=== PATIENT | male | born 1940 | race Caucasian/White ===

== ENCOUNTER 2021-06-17 12:54 | Inpatient (IN) | payer OTHER ==
[~2021-06-17] VITALS: Ht 180.3 cm; Wt 68.0 kg
[2021-06-17 13:10] VITALS: BP_SYST 115
--- NOTE | 2021-06-17 13:10 | NUR ---
Pt to bed 7 for evaluation. Report given to DAT Ware who will assume care.
--- NOTE | 2021-06-17 13:11 | NUR ---
Placed patient onto monitor, vitals obtained WNL, afebrile, patient reports rectal bleeding x 3 days. Currently under care of Oncology. No active bleeding noted. Patient AOx4, at bedside
--- NOTE | 2021-06-17 13:12 | NUR ---
MD at bedside, OB collected from patient and sent to lab
[2021-06-17] MEDS ORDERED: NACL 0.9% 1,000 ML IV ONE (13:15)
[2021-06-17] MEDS ORDERED: METO50TA7 PO (13:38)
[2021-06-17] MEDS ORDERED: LORA-259 PO (13:38)
[2021-06-17] MEDS ORDERED: PRO40 PO (13:38)
[2021-06-17] MEDS ORDERED: SIMV40TA2 PO (13:38)
--- NOTE | 2021-06-17 13:40 | NUR ---
covid swab given to CPT to be taken to lab
[2021-06-17] MEDS ORDERED: LORazepam 2 MG/ML VIAL IVP ONE (13:45)
--- NOTE | 2021-06-17 13:46 | NUR ---
PIV 22G placed into Left Wrist
--- NOTE | 2021-06-17 13:48 | NUR ---
Lab at bedside
--- NOTE | 2021-06-17 13:56 | NUR ---
Xray at bedside
--- NOTE | 2021-06-17 13:57 | NUR ---
Patient medicated per order
--- NOTE | 2021-06-17 13:57 | NUR ---
remains at bedside
--- NOTE | 2021-06-17 14:01 | NUR ---
Consent obtained for CT with Contrast placed into chart
[2021-06-17 14:04] LABS: BASOPHILS % (AUTO) 0.3 % (0.0-2.0); EOSINOPHILS % (AUTO) 0.4 % (0.0-4.0); HEMATOCRIT 32.6 % (36-54); HEMOGLOBIN 10.8 g/dL (14.0-18.0); LYMPHOCYTES # (AUTO) 0.3 K/uL (1.0-5.5); LYMPHOCYTES % (AUTO) 3.7 % (20.5-51.5); MEAN CORPUSCULAR HEMOGLOBIN 30 pg (27-31); MEAN CORPUSCULAR HGB CONC 33 % (32-36); MEAN CORPUSCULAR VOLUME 90 fL (79.0-98.0); MONOCYTES % (AUTO) 10.7 % (1.7-9.3); NEUTROPHILS # (AUTO) 7.8 K/uL (1.8-7.7); NEUTROPHILS % (AUTO) 84.9 % (40.0-70.0); PLATELET COUNT (AUTO) 257 K/uL (130-430); RED BLOOD CELL COUNT(AUTO) 3.63 MIL/uL (4.2-6.2); RED CELL DISTRIBUTION WIDTH 13.2 % (9.0-15.0); WHITE BLOOD COUNT (AUTO) 9.2 K/uL (4.8-10.8)
[2021-06-17 14:07] LABS: ANION GAP 9 (5-15); CALCIUM 8.5 mg/dL (8.4-11.0); CHLORIDE 98 mmol/L (98-107); CREATININE 0.92 mg/dL (0.55-1.30); GLUCOSE 131 mg/dL (70-99); POTASSIUM 3.9 mmol/L (3.5-5.1); SODIUM SERUM 133 mmol/L (136-145); UREA NITROGEN, BLOOD 16 mg/dL (8-21)
[2021-06-17 14:12] LABS: INR 1.1 (0.80-1.20); PROTHROMBIN TIME 11.8 SECS (9.5-12.5)
--- NOTE | 2021-06-17 14:20 | NUR ---
Patient taken to CT scan for imaging
[2021-06-17 14:22] LABS: ALANINE AMINOTRANSFERASE 117 U/L (12-78); ALBUMIN 2.2 g/dL (3.4-4.8); ASPARTATE AMINOTRANSFERASE 82 U/L (10-37); LIPASE 70 U/L (73-393); TOTAL BILIRUBIN 0.6 mg/dL (0.0-1.0)
--- NOTE | 2021-06-17 14:40 | NUR ---
Patient returned from CT scan on [place], stable in no acute distress. Vitals remain stable.
--- NOTE | 2021-06-17 15:03 | NUR ---
Assisted patient onto bed [place], large liquid stool with spots of possible bood. MD aware. Patient remains stable on monitor.
--- NOTE | 2021-06-17 15:43 | NUR ---
Pending admission orders from accepting MD, patient remains in room stable in no acute distress and or discomfort.
--- NOTE | 2021-06-17 16:29 | NUR ---
Admit bed requested Patient will be admitted to care of Dr. Wang Admitted to unit. [facility] Diagnosis GI Bleed Inpatient (Yes or No) Yes Observation (Yes or No) No Orientation concerns or request close to nursing station (Yes or No) No Covid Status Negative On vent or bipap No Isolation requirements None Needs a sitter No From Home (Yes or if No enter name of facility) Yes from Home Requires Dialysis (Yes or No) No Med Rec Completed (Yes of No) Yes
--- NOTE | 2021-06-17 16:59 | NUR ---
Food tray given to patient, tolerating PO intake
--- NOTE | 2021-06-17 17:30 | NUR ---
Patient remains stable in no acute distress and or discomfort. No active bleeding, patient aware of admission and all questions have been answered.
--- NOTE | 2021-06-17 18:02 | NUR ---
CONSULTATION PAGED/CALLED Reason for Consultation: [] GI BLEED Person Who was Notified: [] JOY Consulting Physician: [] DR Viviana ORTEGA Ict Programmer Specialty: [] GI Ordering Physician: [] DR ADLER
--- NOTE | 2021-06-17 18:05 | NUR ---
PT CAME FROM [facility] WITH DIAGNOSIS OF GI BLEED UNDER THE CARE OF DR MARTINEZ, PT EDUCATED ON THE USE OF CALL LIGHT TV AND BED CONSTROLS, ENCOURAGED TO CALL FOR ASSIST. PT NOTED TO BE AMBULATORY WITH STEADY GAIT. URINAL PROVIDED. Addendum: 06/17/21 at 1808 by Juma Ann RN CORRECTION: PT IS UNDER THE CARE OF DR Karen ADLER.
--- NOTE | 2021-06-17 18:07 | NUR ---
CONSULT: GI GI BLEED DR. WOO [id number] S/W: [place]
--- NOTE | 2021-06-17 18:08 | NUR ---
CONSULT: SURGERY GI BLEED DR FOWLER [phone] S/W: [place]
--- NOTE | 2021-06-17 18:09 | NUR ---
Patient will be admitted to care of . Admitted to [facility] unit. Will go to room 110A. Belongings list completed. Complete and up to date summary report printed. SBAR report to be given at bedside with opportunity for questions.
--- NOTE | 2021-06-17 18:09 | NUR ---
PT ENDORSED TO NIGHT DAT BARRETT, ABLE TO GET ORDER TO CONTINUE HOME MEDS FROM DR ADLER.
--- NOTE | 2021-06-17 18:09 | NUR ---
CONSULTATION PAGED/CALLED Reason for Consultation: [] GI BLEED Person Who was Notified: [] Aryan Consulting Physician: [] Koki GRIGGS International Operations Manager Specialty: [] GEN SURGEON Ordering Physician: [] DR ADLER
[2021-06-17 18:21] VITALS: BP_SYST 153
[2021-06-17 19:00] VITALS: BP_SYST 154
--- NOTE | 2021-06-17 19:03 | NUR ---
Paged Cholo Deutsch s/w Vivienne
[2021-06-17 20:00] VITALS: BP_SYST 154
[2021-06-17] MEDS: PANTOPRAZOLE SODIUM 40 MG TAB PO SCH (21:08)
[2021-06-17] MEDS: LORazepam 1 MG TABLET PO SCH (21:09)
[2021-06-17] MEDS: SIMVASTATIN 40 MG TABLET PO SCH (21:09)
[2021-06-17] MEDS: METOPROLOL SUCCINATE 50 MG TAB.SR.24H (TOPROL XL) PO SCH (21:09)
--- NOTE | 2021-06-17 21:13 | NUR ---
Paged hColo Deutsch s/w Vivienne
[2021-06-17] MEDS ORDERED: traZODone HCL 50 MG TABLET (DESYREL) PO PRN (21:45)
--- NOTE | 2021-06-17 22:33 | NUR ---
Paged Cholo Deutsch s/w Sandra
[2021-06-17] MEDS ORDERED: ACETAMINOPHEN 325 MG TABLET PO PRN (22:45)
[2021-06-17] MEDS ORDERED: NALOXONE HCL 0.4 MG/ML AMP (NARCAN) IVP PRN (22:45)
[2021-06-17] MEDS: HYDROcodone/ACETAMIN 5-325 MG TAB (NORCO/ VICODIN) PO PRN (22:50)
[2021-06-18 00:27] VITALS: BP_SYST 140
[2021-06-18 07:11] LABS: BASOPHILS % (AUTO) 0.2 % (0.0-2.0); EOSINOPHILS % (AUTO) 0.4 % (0.0-4.0); HEMATOCRIT 34.7 % (36-54); HEMOGLOBIN 11.3 g/dL (14.0-18.0); LYMPHOCYTES # (AUTO) 0.5 K/uL (1.0-5.5); LYMPHOCYTES % (AUTO) 5.3 % (20.5-51.5); MEAN CORPUSCULAR HEMOGLOBIN 30 pg (27-31); MEAN CORPUSCULAR HGB CONC 33 % (32-36); MEAN CORPUSCULAR VOLUME 91 fL (79.0-98.0); MONOCYTES # (AUTO) 1.2 K/uL (0.0-1.0); MONOCYTES % (AUTO) 12.3 % (1.7-9.3); NEUTROPHILS # (AUTO) 8.2 K/uL (1.8-7.7); NEUTROPHILS % (AUTO) 81.8 % (40.0-70.0); PLATELET COUNT (AUTO) 268 K/uL (130-430); RED BLOOD CELL COUNT(AUTO) 3.83 MIL/uL (4.2-6.2); RED CELL DISTRIBUTION WIDTH 13.4 % (9.0-15.0)
[2021-06-18 08:00] VITALS: BP_SYST 141
[2021-06-18 08:53] LABS: ALANINE AMINOTRANSFERASE 97 U/L (12-78); ALBUMIN 2.2 g/dL (3.4-4.8); ANION GAP 11 (5-15); ASPARTATE AMINOTRANSFERASE 63 U/L (10-37); CALCIUM 9.1 mg/dL (8.4-11.0); CHLORIDE 98 mmol/L (98-107); CREATININE 0.86 mg/dL (0.55-1.30); GLUCOSE 74 mg/dL (70-99); POTASSIUM 4.2 mmol/L (3.5-5.1); SODIUM SERUM 134 mmol/L (136-145); TOTAL BILIRUBIN 0.6 mg/dL (0.0-1.0); UREA NITROGEN, BLOOD 14 mg/dL (8-21)
[2021-06-18] MEDS: PANTOPRAZOLE SODIUM 40 MG TAB PO SCH (09:00)
[2021-06-18] MEDS: PANTOPRAZOLE SODIUM 40 MG/VIAL (PROTONIX) IVP SCH (09:15)
[2021-06-18] MEDS: LORazepam 1 MG TABLET PO SCH ×3 (09:19→21:02)
[2021-06-18] MEDS: HYDROcodone/ACETAMIN 5-325 MG TAB (NORCO/ VICODIN) PO PRN ×2 (09:19→18:40)
[2021-06-18] MEDS: POLYETHYLENE GLYCOL 3350, 17 GM/ POWD.PACK PO SCH ×2 (09:20→21:08)
[2021-06-18 11:27] VITALS: BP_SYST 138
--- NOTE | 2021-06-18 14:00 | NUR ---
CONSULTATION PAGED/CALLED Reason for Consultation: [] RECTAL CA Person Who was Notified: [] ROE Consulting Physician: [] DR CABRERA Ore Miner Specialty: [] ONCO/NERI Ordering Physician: [] DR Viviana ADLER
[2021-06-18 15:40] VITALS: BP_SYST 134
[2021-06-18 20:20] VITALS: BP_SYST 141
[2021-06-18] MEDS: SIMVASTATIN 40 MG TABLET PO SCH (21:02)
[2021-06-18] MEDS: METOPROLOL SUCCINATE 50 MG TAB.SR.24H (TOPROL XL) PO SCH (21:04)
[2021-06-19 00:52] VITALS: BP_SYST 141
--- NOTE | 2021-06-19 07:25 | NUR ---
OPENING NOTE Patient is awake, resting in bed, AxO x4. No sign of distress, patient denies pain at this time. Patient is able to ambulate to the restroom without assistance and steady gait. Patient states that he has had loose stools all night, and they always have blood. Patient requesting to know when he can go home. All needs met at this time, safety checks made. Will continue to monitor.
[2021-06-19 08:00] VITALS: BP_SYST 138
[2021-06-19 08:25] LABS: BASOPHILS % (AUTO) 0.2 % (0.0-2.0); EOSINOPHILS % (AUTO) 0.3 % (0.0-4.0); HEMATOCRIT 32.1 % (36-54); HEMOGLOBIN 10.6 g/dL (14.0-18.0); LYMPHOCYTES # (AUTO) 0.4 K/uL (1.0-5.5); MEAN CORPUSCULAR HEMOGLOBIN 30 pg (27-31); MEAN CORPUSCULAR HGB CONC 33 % (32-36); MEAN CORPUSCULAR VOLUME 90 fL (79.0-98.0); MONOCYTES # (AUTO) 1.1 K/uL (0.0-1.0); MONOCYTES % (AUTO) 10.3 % (1.7-9.3); NEUTROPHILS # (AUTO) 9.3 K/uL (1.8-7.7); NEUTROPHILS % (AUTO) 85.2 % (40.0-70.0); PLATELET COUNT (AUTO) 255 K/uL (130-430); RED BLOOD CELL COUNT(AUTO) 3.57 MIL/uL (4.2-6.2); RED CELL DISTRIBUTION WIDTH 13.4 % (9.0-15.0); WHITE BLOOD COUNT (AUTO) 10.9 K/uL (4.8-10.8)
[2021-06-19 08:26] LABS: ANION GAP 7 (5-15); CHLORIDE 98 mmol/L (98-107); CREATININE 0.83 mg/dL (0.55-1.30); GLUCOSE 95 mg/dL (70-99); SODIUM SERUM 133 mmol/L (136-145); UREA NITROGEN, BLOOD 18 mg/dL (8-21)
[2021-06-19] MEDS: LORazepam 1 MG TABLET PO SCH (08:58)
[2021-06-19] MEDS: POLYETHYLENE GLYCOL 3350, 17 GM/ POWD.PACK PO SCH (08:59)
[2021-06-19] MEDS: PANTOPRAZOLE SODIUM 40 MG/VIAL (PROTONIX) IVP SCH (09:00)
[2021-06-19] MEDS: HYDROcodone/ACETAMIN 5-325 MG TAB (NORCO/ VICODIN) PO PRN (10:05)
[2021-06-19] MEDS ORDERED: POLY17PO4 PO (11:03)
[2021-06-19] MEDS ORDERED: HYDR-3919 PO (11:03)
[2021-06-19] MEDS ORDERED: TRAZ-250 PO (11:03)
[2021-06-19 11:27] VITALS: BP_SYST 137
[2021-06-19 12:22] VITALS: BP_SYST 138
--- NOTE | 2021-06-19 12:58 | NUR ---
D/C Patient Patient given medication reconciliation form and D/C instructions. Exit Care provided. Patient verbalized understanding. MD discussed with patient the results and treatment provided. Ambulatory with steady gait for discharge to home. Patient in stable condition, ID band removed. IV catheter removed, intact and dressing applied, no active bleeding. Patient educated on pain management. Patient discharged home via private auto with and daughter. All belongings sent with patient.
== END 2021-06-19 12:58 | disposition home or self-care (01) | DRG 375 ==
LOC: SED 12:54 → SMU 16:29
PROVIDERS: ADMIT Preventive Medicine Preventive Medicine/Occupational Environmental Medicine; ATTEND Preventive Medicine Preventive Medicine/Occupational Environmental Medicine
DX: C20 Malignant neoplasm of rectum (principal); E87.1 Hypo-osmolality and hyponatremia; C78.7 Secondary malignant neoplasm of liver and intrahepatic bile duct; C78.6 Secondary malignant neoplasm of retroperitoneum and peritoneum; C78.00 Secondary malignant neoplasm of unspecified lung; C18.9 Malignant neoplasm of colon, unspecified; K59.00 Constipation, unspecified; D64.9 Anemia, unspecified; E78.00 Pure hypercholesterolemia, unspecified; E78.5 Hyperlipidemia, unspecified; R73.9 Hyperglycemia, unspecified; E88.09 Other disorders of plasma-protein metabolism, not elsewhere classified; Z20.822 Contact with and (suspected) exposure to COVID-19; D72.829 Elevated white blood cell count, unspecified; R74.01 Elevation of levels of liver transaminase levels; I10 Essential (primary) hypertension; K21.9 Gastro-esophageal reflux disease without esophagitis; N40.0 Benign prostatic hyperplasia without lower urinary tract symptoms; Z85.048 Personal history of other malignant neoplasm of rectum, rectosigmoid junction, and anus; Z92.21 Personal history of antineoplastic chemotherapy; Z92.3 Personal history of irradiation
CPT/HCPCS: 36415; 76376; 80048; 80053; 82272; 83605; 83690; 84484; 85025; 85610-TC; 85730-TC; 86886; 86900; 86901; 87040; 93005; 96361; 96374; 99291; C9113; J2060; Q9967